=== PATIENT | male | born 1955 | race Caucasian/White ===

== ENCOUNTER 2021-06-08 00:58 | Emergency (ER) | payer MEDICARE ==
[2021-06-08 01:17] VITALS: TEMP 97.9
--- NOTE | 2021-06-08 01:17 | ED ---
General Adult HPI - General Stated complaint: Fall Time Seen by Provider: 06/08/21 01:06 Source: patient, EMS Mode of arrival: EMS Limitations: physical limitation - History of Present Illness Initial comments: 66-year-old male with a past medical history of GERD, peripheral vascular disease on heparin, end-stage renal disease on urinalysis, atrial fibrillation, diabetes mellitus, morbid obesity presents to the emergency room for a chief complaint of fall out of bed. group home states the patient slid out of bed this evening and was found [facility] out of bed. Patient is combining of left leg pain. States it is painful to bend his knee. Patient did not hit his head. Patient denies any back pain or neck pain.Patient has no other complaints at this time including shortness of breath, chest pain, abdominal pain, nausea or vomiting, headache, or visual changes. - Related Data Allergies Allergy/AdvReac Type Severity Reaction Status Date / Time No Known Drug Allergies Allergy Unknown Unknown Verified 06/08/21 01:17 Review of Systems ROS Statement: Those systems with pertinent positive or pertinent negative responses have been documented in the HPI. ROS Other: All systems not noted in ROS Statement are negative. Past Medical History Past Medical History: GERD/Reflux, Osteoarthritis (OA), Renal Disease, Skin Disorder, Vascular Disorder History of Any Multi-Drug Resistant Organisms: None Reported Past Surgical History: Unable to Obtain Past Psychological History: Depression Smoking Status: Former smoker Past Alcohol Use History: Occasional Past Drug Use History: None Reported General Exam Limitations: physical limitation General appearance: alert, in no apparent distress Head exam: Present: atraumatic, normocephalic, normal inspection Eye exam: Present: normal appearance ENT exam: Present: normal exam, mucous membranes moist Neck exam: Present: normal inspection. Absent: tenderness, meningismus, lymphadenopathy Respiratory exam: Present: normal lung sounds bilaterally. Absent: respiratory distress, wheezes, rales, rhonchi, stridor Cardiovascular Exam: Present: regular rate, normal rhythm, normal heart sounds. Absent: systolic murmur, diastolic murmur, rubs, gallop, clicks GI/Abdominal exam: Present: soft, normal bowel sounds. Absent: distended, tenderness, guarding, rebound, rigid Extremities exam: Present: tenderness (Tenderness noted to mid left femur.), normal capillary refill (DP pulse 2+ left lower extremity), other (Sensation intact before extremity). Absent: full ROM (Patient unable to flex the knee or hip secondary to pain.) Course Vital Signs 06/08/21 01:08 Temperature 97.9 F Pulse Rate 79 Respiratory 16 Rate Blood Pressure 124/85 O2 Sat by Pulse 92 L Oximetry - Reevaluation(s) Reevaluation #1: 06/08/21 01:16 Patient received 200 mg of fentanyl just prior to arrival. EKG Findings - EKG Comments: EKG Findings:: Atrial fibrillation, ventricular rate 72, QRS duration 128, QTc 473 Medical Decision Making - Medical Decision Making Patient presents for fall. Patient apparently tried to sit on the edge of the bed and slid out of bed. Patient does have a 100% displaced spiral fracture of the left femur extending down to the medial condyle. DP pulse 2+. Femur x-ray reveals an oblique fracture of the midshaft of the femur with spiral component extending to the medial femoral condyle. There is 100% medial displacement of the distal fragment. Attempted reduction of femur and stabilized with knee immobilizer. Dr. Reyes Discussed this case with on-call ortho Dr. Kramer, recommends transfer. Dr Reyes discussed case with [facility] [place], transfer accepted. Disposition Clinical Impression: Femur fracture, left Disposition: OTHER INSTITUTION NOT DEFINED Referrals: Omar Gamez MD [Primary Care Provider] - 1-2 days Time of Disposition: 02:27 - Out of Hospital Transfer - Req. Specs Out of Hospital Transfer - Requested Specifics: Other Emergency Center ([facility])
--- NOTE | 2021-06-08 02:03 | XR ---
EXAMINATION TYPE: XR Hip LT and AP Pelvis DATE OF EXAM: 06/08/2021 COMPARISON: NONE HISTORY: Fall. Pain. TECHNIQUE: 3 views FINDINGS: The pelvic ring appears intact. Exam limited by the patient's size. Hip joint spaces are fa irly normal. The proximal left femur is intact. There is vascular calcification. IMPRESSION: No fracture seen. Limited exam. There is some amorphous increased density over the left i leum that could be a calcified soft tissue mass measuring 9 cm in diameter.
--- NOTE | 2021-06-08 02:05 | XR ---
EXAMINATION TYPE: XR femur LT DATE OF EXAM: 06/08/2021 COMPARISON: NONE HISTORY: Fall. Pain. TECHNIQUE: 6 views FINDINGS: There is oblique fracture of the mid shaft of the left femur. There is 100% medial displace ment of the distal fragment in the frontal projection. There is extensive vascular calcification. The re appears to be hairline spiral fracture also extending down the shaft of the distal femur all the w ay to the medial femoral condyle. IMPRESSION: Oblique fracture of the mid shaft of the femur with probably a spiral component extending to the medial femoral condyle.
[2021-06-08] MEDS ORDERED: LORazepam 2 MG/ML INJ IV STA (02:07)
[2021-06-08] MEDS ORDERED: HYDROmorphone 1 MG/ML 1 ML SYRINGE IVP STA (02:08)
[2021-06-08] MEDS ORDERED: SODIUM CHLORIDE 0.9% 500 ML 500 ML IV STA (02:15)
[2021-06-08] MEDS ORDERED: SODIUM CHLORIDE 0.9% 1,000 ML IV STA (02:15)
[2021-06-08 02:45] VITALS: BP 139/78; PULSE 77; RESP 18
[2021-06-08 02:54] LABS: Basophils # (A) 0.1 k/uL (0-0.2); Basophils % (A) 1 %; Eosinophils # (A) 0.2 k/uL (0-0.7); Eosinophils % (A) 1 %; HCT 42.2 % (39.0-53.0); HGB 13.2 gm/dL (13.0-17.5); Lymphocytes # (A) 0.8 k/uL (1.0-4.8); Lymphocytes % (A) 7 %; MCHC 31.2 g/dL (31.0-37.0); MCV 96.3 fL (80.0-100.0); Mean Platelet Volume 8.1; Monocytes # (A) 0.7 k/uL (0-1.0); Monocytes % (A) 6 %; Neutrophils % (A) 85 %; Platelet Count 165 k/uL (150-450); RBC 4.39 m/uL (4.30-5.90); RDW 15.6 % (11.5-15.5); WBC 11.8 k/uL (3.8-10.6)
[2021-06-08 03:14] LABS: Albumin 3.1 g/dL (3.5-5.0); Calcium 9.5 mg/dL (8.4-10.2); Magnesium 1.7 mg/dL (1.6-2.3); Total Bilirubin 0.8 mg/dL (0.2-1.3); Total Protein 6.1 g/dL (6.3-8.2)
[2021-06-08 03:52] LABS: Potassium 4.3 mmol/L (3.5-5.1)
== END 2021-06-08 03:29 | disposition other institution (70) ==
LOC: EC 00:58
DX: S72.332A Displaced oblique fracture of shaft of left femur, initial encounter for closed fracture (principal); E11.22 Type 2 diabetes mellitus with diabetic chronic kidney disease; E11.51 Type 2 diabetes mellitus with diabetic peripheral angiopathy without gangrene; E66.01 Morbid (severe) obesity due to excess calories; I48.91 Unspecified atrial fibrillation; K21.9 Gastro-esophageal reflux disease without esophagitis; M19.90 Unspecified osteoarthritis, unspecified site; N18.6 End stage renal disease; W06.XXXA Fall from bed, initial encounter; Z87.891 Personal history of nicotine dependence; F32.9 Major depressive disorder, single episode, unspecified; Z68.42 Body mass index [BMI] 45.0-49.9, adult
CPT/HCPCS: 36415; 93005; 80053; 83735; 84100; 84484; 85025; 73502; 73552; 99284; 96374; 96375; J2060; J1170

== ENCOUNTER 2021-08-04 10:46 | Emergency (ER) | payer MEDICARE, OTHER ==
[2021-08-04 10:59] VITALS: RESP 18
[2021-08-04] MEDS ORDERED: SODIUM CHLORIDE 0.9% 1,000 ML IV STA (11:16)
--- NOTE | 2021-08-04 11:19 | ED ---
General Adult HPI - General Chief complaint: Abdominal Pain Stated complaint: Abdominal issues Time Seen by Provider: 08/04/21 10:55 Source: patient, EMS, RN notes reviewed Mode of arrival: EMS Limitations: no limitations - History of Present Illness Initial comments: Patient is a pleasant [age]-year-old male presenting to the emergency department with concerns for ileus. Patient is somewhat a poor historian. Patient states he has been having frequent loose stools. Patient previously was having diarrhea. Patient is having abdominal discomfort that he describes as gas. Patient states this is intermittent. Unclear patient has fevers. Patient states he did have similar symptoms once previously. - Related Data Home Medications Medication Instructions Recorded Confirmed ALPRAZolam [Xanax] 0.25 mg PO Q12H PRN 08/04/21 08/04/21 Acetaminophen [Tylenol Arthritis] 650 mg PO Q6H PRN 08/04/21 08/04/21 Albuterol Sulfate [Ventolin HFA] 2 puff INHALATION RT-Q6H PRN 08/04/21 08/04/21 Calcium Acetate [Phoslo] 1,334 mg PO TID@0900,1300,1800 08/04/21 08/04/21 DULoxetine HCL [Cymbalta] 30 mg PO DAILY@0800 08/04/21 08/04/21 Furosemide [Lasix] 80 mg PO BID@0800,1600 08/04/21 08/04/21 Heparin Sodium,Porcine [Heparin 5,000 unit SQ Q8HR@0000,0800,1600 08/04/21 08/04/21 Sodium] Insulin Glargine [Lantus Vial] 10 unit SQ HS@199908/04/21 08/04/21 Loperamide [Imodium] 2 mg PO Q6H PRN 08/04/21 08/04/21 Multivitamins, Thera [Multivitamin 1 tab PO DAILY@0808/04/21 08/04/21 (formulary)] Omeprazole 20 mg PO DAILY@0800 08/04/21 08/04/21 Pregabalin [Lyrica] 75 mg PO DAILY@0800 08/04/21 08/04/21 calcitrioL [Rocaltrol] 0.25 mcg PO DAILY@0800 08/04/21 08/04/21 oxyCODONE HCL 5 mg PO Q6H PRN 08/04/21 08/04/21 traMADol HCL 50 mg PO Q12H PRN 08/04/21 08/04/21 Previous Rx's Medication Instructions Recorded Levofloxacin [Levaquin] 500 mg PO DAILY #5 tab 08/04/21 Allergies Allergy/AdvReac Type Severity Reaction Status Date / Time No Known Drug Allergies Allergy Unknown Unknown Verified 08/04/21 12:12 Review of Systems ROS Statement: Those systems with pertinent positive or pertinent negative responses have been documented in the HPI. ROS Other: All systems not noted in ROS Statement are negative. Constitutional: Denies: fever Eyes: Denies: eye pain ENT: Denies: ear pain Respiratory: Denies: cough Cardiovascular: Denies: chest pain Endocrine: Denies: fatigue Gastrointestinal: Reports: as per HPI Genitourinary: Denies: dysuria Musculoskeletal: Denies: back pain Skin: Denies: rash Neurological: Denies: weakness Past Medical History Past Medical History: GERD/Reflux, Osteoarthritis (OA), Renal Disease, Skin Disorder, Vascular Disorder History of Any Multi-Drug Resistant Organisms: None Reported Past Surgical History: Unable to Obtain Past Psychological History: Depression Smoking Status: Former smoker Past Alcohol Use History: Occasional Past Drug Use History: None Reported General Exam Limitations: no limitations General appearance: alert, in no apparent distress Head exam: Present: normocephalic Eye exam: Present: normal appearance Neck exam: Present: normal inspection Respiratory exam: Present: normal lung sounds bilaterally Cardiovascular Exam: Present: regular rate, normal rhythm GI/Abdominal exam: Present: soft, tenderness (Mild diffuse tenderness) Extremities exam: Present: other (Lymphedema patient states chronic) Neurological exam: Present: alert Psychiatric exam: Present: normal affect, normal mood Skin exam: Present: normal color Course Vital Signs 08/04/21 08/04/21 08/04/21 10:53 10:59 11:59 Temperature 98.3 F Pulse Rate 53 L 61 60 Respiratory 18 18 18 Rate Blood Pressure 148/76 140/83 156/88 O2 Sat by Pulse 96 95 95 Oximetry 08/04/21 08/04/21 12:59 13:00 Temperature Pulse Rate 58 L 58 L Respiratory 18 18 Rate Blood Pressure 161/87 O2 Sat by Pulse 95 95 Oximetry Medical Decision Making - Medical Decision Making Patient reevaluated and resting comfortably in bed. Patient is symptom-free at this time. Case discussed in detail including presentation and results with Dr. Langston who does recommend oral Levaquin and discharge and follow-up. Patient has no fever or increased white blood cell count and is symptom-free. - Lab Data Result diagrams: 08/04/21 11:25 08/04/21 11:25 Lab Results 08/04/21 08/04/21 08/04/21 Range/Units 11:25 11:25 11:25 WBC 9.7 (3.8-10.6) k/uL RBC 4.18 L (4.30-5.90) m/uL Hgb 12.9 L (13.0-17.5) gm/dL Hct 39.1 (39.0-53.0) % MCV 93.4 (80.0-100.0) fL MCH 30.9 (25.0-35.0) pg MCHC 33.0 (31.0-37.0) g/dL RDW 14.5 (11.5-15.5) % Plt Count 218 (150-450) k/uL MPV 7.5 Neutrophils % 79 % Lymphocytes % 9 % Monocytes % 6 % Eosinophils % 4 % Basophils % 1 % Neutrophils # 7.6 (1.3-7.7) k/uL Lymphocytes # 0.9 L (1.0-4.8) k/uL Monocytes # 0.6 (0-1.0) k/uL Eosinophils # 0.3 (0-0.7) k/uL Basophils # 0.1 (0-0.2) k/uL PT 11.1 (9.0-12.0) sec INR 1.0 (<1.2) APTT 28.4 (22.0-30.0) sec Sodium 132 L (137-145) mmol/L Potassium 3.3 L (3.5-5.1) mmol/L Chloride 92 L (98-107) mmol/L Carbon Dioxide 31 H (22-30) mmol/L Anion Gap 9 mmol/L BUN 22 H (9-20) mg/dL Creatinine 3.33 H (0.66-1.25) mg/dL Est GFR (CKD-EPI)AfAm 21 (>60 ml/min/1.73 sqM) Est GFR (CKD-EPI)NonAf 18 (>60 ml/min/1.73 sqM) Glucose 129 H (74-99) mg/dL Calcium 10.2 (8.4-10.2) mg/dL Total Bilirubin 0.6 (0.2-1.3) mg/dL AST 15 L (17-59) U/L ALT 8 (4-49) U/L Alkaline Phosphatase 78 (38-126) U/L Total Protein 6.3 (6.3-8.2) g/dL Albumin 3.3 L (3.5-5.0) g/dL Amylase 47 (30-110) U/L Lipase 60 (23-300) U/L - Radiology Data Radiology results: report reviewed (Computed tomography scan of abdomen and pelvis does have large gallstone. There is some wall thickening as well.) Disposition Clinical Impression: Abdominal pain, Gallstone Disposition: HOME SELF-CARE Condition: Stable Instructions (If sedation given, give patient instructions): Abdominal Pain (ED), Gallstones (ED) Additional Instructions: Prescription has been sent to pharmacy. Please follow-up with primary care physician and surgeon in the next couple days for recheck. Return for fever, increased pain, worsening symptoms or other concerns. Prescriptions: Levofloxacin [Levaquin] 500 mg PO DAILY #5 tab Is patient prescribed a controlled substance at d/c from ED?: No Referrals: Omar Gamez MD [REFERRING] - 1-2 days Calvin Lucas MD [Medical Doctor] - 1-2 days Time of Disposition: 14:00
[2021-08-04 11:49] LABS: Basophils # (A) 0.1 k/uL (0-0.2); Basophils % (A) 1 %; Eosinophils # (A) 0.3 k/uL (0-0.7); Eosinophils % (A) 4 %; HCT 39.1 % (39.0-53.0); HGB 12.9 gm/dL (13.0-17.5); Lymphocytes # (A) 0.9 k/uL (1.0-4.8); Lymphocytes % (A) 9 %; MCH 30.9 pg (25.0-35.0); MCV 93.4 fL (80.0-100.0); Mean Platelet Volume 7.5; Monocytes # (A) 0.6 k/uL (0-1.0); Monocytes % (A) 6 %; Neutrophils # (A) 7.6 k/uL (1.3-7.7); Neutrophils % (A) 79 %; Platelet Count 218 k/uL (150-450); RBC 4.18 m/uL (4.30-5.90); RDW 14.5 % (11.5-15.5); WBC 9.7 k/uL (3.8-10.6)
[2021-08-04 11:54] LABS: Albumin 3.3 g/dL (3.5-5.0); Calcium 10.2 mg/dL (8.4-10.2); Potassium 3.3 mmol/L (3.5-5.1); Total Bilirubin 0.6 mg/dL (0.2-1.3); Total Protein 6.3 g/dL (6.3-8.2)
[2021-08-04 11:58] LABS: Partial Thromboplastin Time 28.4 sec (22.0-30.0); Prothrombin Time 11.1 sec (9.0-12.0)
--- NOTE | 2021-08-04 12:16 | CT ---
EXAMINATION TYPE: CT abdomen pelvis wo con DATE OF EXAM: 08/04/2021 HISTORY: Abdominal pain for order CT DLP: 2035.2 mGycm. Automated Exposure Control for Dose Reduction was Utilized. TECHNIQUE: CT scan of the abdomen and pelvis is performed without oral or IV contrast. COMPARISON: NONE FINDINGS: Within the limitations of a non-contrast study, the following observations are made. LUNG BASES: There is small to tiny left pleural effusion with associated left basilar compressive ate lectasis. There is mild to moderate left greater than right bibasilar linear scarring and/or atelecta sis. Calcification level of the aortic and mitral valve. Heart size upper limits of normal. Some zachary nary artery calcification is present. LIVER/GB: Large 3.3 cm gallstone within gallbladder coronal image 65. Gallbladder is distended henny ns with suggestion of mild wall thickening and wall irregularity raising concern for acute cholecysti tis. No abnormal biliary dilatation is noted. PANCREAS: No significant abnormality is seen. SPLEEN: There is small splenule anterior to the spleen axial image 27. ADRENALS: No significant abnormality is seen. KIDNEYS: Cortical thinning and diminished size to both kidneys consistent with chronic medical renal disease. Occasional small thin-walled benign cysts scattered throughout the left kidney. BOWEL: Redundant sigmoid colon. Suspicious eccentric to 0.8 cm soft tissue lesion left sigmoid colon axial image 78 could reflect large polyp. Nonemergent colonoscopy follow-up advised. Smaller polyp or eccentric wall thickening anterior sigmoid rectal colon axial image 84 and sagittal image 72 noted. Ingested nonabsorbed hyperdense pills are noted throughout the prominent sigmoid colon with internal fecal debris. No suspicious small or large bowel dilatation GENITAL ORGANS: Prostate not enlarged. LYMPH NODES: No greater than 1cm abdominal or pelvic lymph nodes are appreciated. OSSEOUS STRUCTURES: Some symmetric narrowing of bilateral sacroiliac joints. Osseous structures are d emineralized. [id number] multilevel spurring in the thoracolumbar spine. Mild to moderate kasey rowing and spurring in both hip joints OTHER: Fat-containing ventral wall hernia just above the umbilicus coronal image 35. Just below the u mbilicus is peritoneal dialysis catheter terminating in the right midabdomen. Moderate to severe calcified plaque of the aorta extends into branch vessels with additional severe s mall vessel arterial calcification consistent with product of long-standing chronic medical renal dis ease. Mild diffuse subcutaneous edema at the level of the pelvis is noted. [id number]-[id number]-[id number] diffuse gluteal muscular atrophy IMPRESSION: 1. Large gallstone with CT evidence suggestive of acute cholecystitis in appropriate clinical setting . Correlate clinically. 2. Suspicious soft tissue nodules in the sigmoid colon worrisome for polyps, advise nonemergent colon oscopy follow-up to further evaluate.
[2021-08-04 14:31] VITALS: BP 143/79; PULSE 60; TEMP 98.1
== END 2021-08-04 15:22 | disposition home or self-care (01) ==
LOC: EC 10:46
DX: K80.80 Other cholelithiasis without obstruction (principal); F32.9 Major depressive disorder, single episode, unspecified; K21.9 Gastro-esophageal reflux disease without esophagitis; M19.90 Unspecified osteoarthritis, unspecified site; Z79.899 Other long term (current) drug therapy; Z87.891 Personal history of nicotine dependence
CPT/HCPCS: 36415; 74176; 80053; 82150; 83690; 85025; 85610; 85730; 96360; 96361; 99284